=== PATIENT | female | born 1985 ===

== ENCOUNTER 2020-03-17 09:35 | Inpatient (IN) | payer OTHER ==
[2020-03-17] MEDS ORDERED: Sodium Chloride 0.9% 10 ML SDV IV PRN (12:24)
[2020-03-17] MEDS ORDERED: Water For Irrigation,Sterile 1,000 ML Container IRR PRN (12:24)
[2020-03-17] MEDS ORDERED: Nalbuphine 10 MG/1 ML Vial IVPUSH PRN (12:24)
[2020-03-17] MEDS ORDERED: Carboprost Tromethamine 250 MCG/1 ML Amp IM PRN (12:24)
[2020-03-17] MEDS ORDERED: Sodium Chloride 0.9% 10 ML Syringe FLUSH PRN (12:24)
[2020-03-17] MEDS ORDERED: Misoprostol 200 MCG Tab PO PRN (12:24)
[2020-03-17] MEDS ORDERED: Butorphanol 1 MG/ML SDV IVPUSH PRN (12:24)
[2020-03-17] MEDS ORDERED: Tranexamic Acid 1,000 MG in Sodium Chloride 0.9% 100 ML IV PRN (12:24)
[2020-03-17] MEDS ORDERED: Lidocaine 1% 50 ML MDV INJECT PRN (12:24)
[2020-03-17] MEDS ORDERED: Methylergonovine 0.2 MG/1 ML Amp IM PRN (12:24)
[2020-03-17] MEDS ORDERED: Sodium Chloride 0.9% 2.5 ML Syringe FLUSH PRN (12:24)
[2020-03-17] MEDS ORDERED: Oxytocin/0.9 % Sodium Chloride 30 UNIT/500 ML BAG IV SCH ×2 (12:30→23:45)
--- NOTE | 2020-03-17 16:36 | PCM.LDHP ---
L&D History of Present Illness - General Date of Service: 03/17/20 Admit Problem/Dx: Patient Status Order with Admit Dx/Problem 03/17/20 09:30 Patient Status [ADT] Routine Admission Diagnosis/Problem Admission Diagnosis/Problem Source of Information: Patient History Limitations: Reports: No Limitations - History of Present Illness Improves with: Reports: None Worsens with: Reports: None Associated Symptoms: Reports: N - Related Data Allergies/Adverse Reactions: Allergies Allergy/AdvReac Type Severity Reaction Status Date / Time No Known Allergies Allergy Verified 03/17/20 09:55 Home Medications: Home Meds Ascorbate Calcium [Vitamin C] 500 mg PO DAILY 02/24/20 [History] Folic Acid 1 mg PO DAILY 02/24/20 [History] Vits #93/Iron Fum/FA [ Formula Tablet] 1 each PO DAILY 02/24/20 [History] Past Medical History - Past Health History Medical/Surgical History: Denies 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: Social & Family History - Family History Endocrine/Metabolic: Reports: Diabetes, type II, Other (See Below) Other Endocrine/Metabolic Family History: Mother - Tobacco Use Tobacco Use Status *Q: Former Tobacco User Years of Tobacco use: 3 Packs/Tins Daily: 0.2 Used Tobacco, but Quit: Yes Month/Year Tobacco Last Used: 2017 Second Hand Smoke Exposure: No - Caffeine Use Caffeine Use: Reports: Coffee - Recreational Drug Use Recreational Drug Use: No H&P Review of Systems - Review of Systems: Review Of Systems: See Below General: Reports: No Symptoms HEENT: Reports: No Symptoms Pulmonary: Reports: No Symptoms Cardiovascular: Reports: No Symptoms Gastrointestinal: Reports: No Symptoms Genitourinary: Reports: No Symptoms Musculoskeletal: Reports: No Symptoms Skin: Reports: No Symptoms Psychiatric: Reports: No Symptoms Neurological: Reports: No Symptoms Hematologic/Lymphatic: Reports: No Symptoms Immunologic: Reports: No Symptoms L&D Exam - Exam Exam: See Below - Vital Signs Weight: 96.162 kg - OB Specific Contraction Intensity: Mild to Moderate Movement: Active Heart Tones: Present Presentation: Vertex - Guerra Score Guerra Score Cervix Position: Midposition Guerra Score Consistency: Soft Guerra Score Effacement: >80% Guerra Score Dilation: > 5 cm Guerra Score Infant's Station: -3 Guerra Score Total: 9 - Exam General: Alert, Oriented HEENT: PERRLA, Conjunctiva Clear, EACs Clear, EOMI, Hearing Intact, Mucosa Moist & Parral, Nares Patent, Normal Nasal Septum, Posterior Pharynx Clear, TMs Clear Neck: Supple, Trachea Midline Lungs: Clear to Auscultation, Normal Respiratory Effort Cardiovascular: Regular Rate, Regular Rhythm GI/Abdominal Exam: Normal Bowel Sounds, Soft, Non-Tender, No Organomegaly, No Distention, No Abnormal Bruit, No Mass, Pelvis Stable Rectal Exam: Normal Exam, Normal Rectal Tone Genitourinary: Normal external exam, Normal bimanual exam, Normal speculum exam Back Exam: Normal Inspection, Full Range of Motion Extremities: Normal Inspection, Normal Range of Motion, Non-Tender, No Pedal Edema, Normal Capillary Refill Skin: Warm, Dry, Intact Neurological: Cranial Nerves Intact, Reflexes Equal Bilateral Psychiatric: Alert, Normal Affect, Normal Mood - Patient Data Lab Results Last 24 hrs: Laboratory Results - last 24 hr 03/17/20 03/17/20 03/17/20 Range/Units 12:40 12:40 12:40 WBC 9.17 (4.0-11.0) K/uL RBC 4.15 L (4.30-5.90) M/uL Hgb 13.0 (12.0-16.0) g/dL Hct 39.1 (36.0-46.0) % MCV 94.2 (80.0-98.0) fL MCH 31.3 (27.0-32.0) pg MCHC 33.2 (31.0-37.0) g/dL RDW Std Deviation 46.8 (28.0-62.0) fl RDW Coeff of Katharina 14 (11.0-15.0) % Plt Count 294 (150-400) K/uL MPV 9.90 (7.40-12.00) fL Nucleated RBC % 0.0 /100WBC Nucleated RBCs # 0 K/uL SARS-CoV-2 RNA (JASON) NEGATIVE (NEGATIVE) Blood Type O POSITIVE Antibody Screen NEGATIVE Result Diagrams: 03/17/20 12:40 Problem List Initiated/Reviewed/Updated: Yes Orders Last 24hrs: Active Orders 24 hr Category Date Time Status Patient Status [ADT] Routine ADT 03/17/20 09:30 Active Blood Glucose Check, Bedside [RC] ASDIRECTED Care 03/17/20 15:13 Active Heart Tones [RC] CONTINUOUS Care 03/17/20 12:24 Active Non Stress Test [RC] PER UNIT ROUTINE Care 03/17/20 09:55 Active May Shower [RC] ASDIRECTED Care 03/17/20 12:24 Active Notify Provider [RC] PRN Care 03/17/20 12:24 Active Up ad Елена [RC] ASDIRECTED Care 03/17/20 09:55 Active Up ad Елена [RC] ASDIRECTED Care 03/17/20 12:24 Active Vaginal Exam [RC] Click to Edit Care 03/17/20 09:55 Active Vaginal Exam [RC] PRN Care 03/17/20 12:24 Active Vital Signs [RC] PER UNIT ROUTINE Care 03/17/20 09:55 Active RPR (SYPHILIS SERO) W/ RFLX [REF] Routine Lab 03/17/20 12:40 Received Butorphanol [Stadol] Med 03/17/20 12:24 Active 1 mg IVPUSH Q1H PRN Carboprost Tromethamine [Hemabate DS] Med 03/17/20 12:24 Active 250 mcg IM ASDIRECTED PRN Lactated Ringers [Ringers, Lactated] 1,000 ml Med 03/17/20 12:30 Active IV ASDIRECTED Lidocaine 1% [Xylocaine 1%] Med 03/17/20 12:24 Active 50 ml INJECT ONETIME PRN Methylergonovine [Methergine] Med 03/17/20 12:24 Active 0.2 mg IM ASDIRECTED PRN Oxytocin/0.9 % Sodium Chloride [Oxytocin 30 Unit/500 ML Med 03/17/20 12:30 Active -NS] 30 unit in 500 ml IV TITRATE Sodium Chloride 0.9% [Normal Saline] Med 03/17/20 12:24 Active 10 ml IV ASDIRECTED PRN Sodium Chloride 0.9% [Saline Flush] Med 03/17/20 12:24 Active 10 ml FLUSH ASDIRECTED PRN Sodium Chloride 0.9% [Saline Flush] Med 03/17/20 12:24 Active 2.5 ml FLUSH ASDIRECTED PRN Tranexamic Acid [Cyklokapron] 1,000 mg Med 03/17/20 12:24 Active Sodium Chloride 0.9% [Normal Saline] 100 ml IV ONETIME Water For Irrigation,Sterile [Sterile Water for Med 03/17/20 12:24 Active Irrigation] 1,000 ml IRR ASDIRECTED PRN miSOPROStoL [Cytotec] Med 03/17/20 12:24 Active 200 mcg PO ONETIME PRN Scalp Electrode [WOMSER] Per Unit Routine Oth 03/17/20 12:24 Ordered Peripheral IV Insertion Adult [OM.PC] Routine Oth 03/17/20 12:24 Ordered Resuscitation Status Routine Resus Stat 03/17/20 09:55 Ordered Medication Orders Butorphanol Tartrate (Stadol) 1 mg IVPUSH Q1H PRN PRN Reason: Pain Carboprost Tromethamine (Hemabate Ds) 250 mcg IM ASDIRECTED PRN PRN Reason: Post Hemorrhage Lactated Ringer's (Ringers, Lactated) 1,000 mls @ 150 mls/hr IV ASDIRECTED NANCI Oxytocin/Sodium Chloride (Oxytocin 30 Unit/500 Ml-Ns) 30 unit in 500 mls @ 500 mls/hr IV TITRATE NANCI Tranexamic Acid 1,000 mg/ (Sodium Chloride) 110 mls @ 660 mls/hr IV ONETIME PRN PRN Reason: Bleeding Lidocaine HCl (Xylocaine 1%) 50 ml INJECT ONETIME PRN PRN Reason: Laceration repair Methylergonovine Maleate (Methergine) 0.2 mg IM ASDIRECTED PRN PRN Reason: Post Hemorrhage Misoprostol (Cytotec) 200 mcg PO ONETIME PRN PRN Reason: Post Hemorrhage Sodium Chloride (Saline Flush) 10 ml FLUSH ASDIRECTED PRN PRN Reason: Keep Vein Open Sodium Chloride (Saline Flush) 2.5 ml FLUSH ASDIRECTED PRN PRN Reason: Keep Vein Open Sodium Chloride (Normal Saline) 10 ml IV ASDIRECTED PRN PRN Reason: IV Use Sterile Water (Sterile Water For Irrigation) 1,000 ml IRR ASDIRECTED PRN PRN Reason: delivery Assessment/Plan Comment:: Early active labor.37+4 SROM clear filud
[2020-03-17] MEDS: Lactated Ringers 1,000 ML IV SCH ×2 (20:59→21:45)
[2020-03-17] MEDS ORDERED: fentaNYL 100 MCG/2 ML SDV ONE (21:16)
[2020-03-17] MEDS ORDERED: Ropivacaine HCl/PF 100 ML ONE (21:16)
--- NOTE | 2020-03-17 21:38 | PCM.PREANE ---
Preanesthetic Assessment - Anesthesia/Transfusion/Family Hx Anesthesia History: No Prior Anesthesia Family History of Anesthesia Reaction: No Transfusion History: No Prior Transfusion(s) - Physical Assessment NPO Status Date: 03/17/20 NPO Status Time: 12:00 Height: 1.63 m Weight: 96.162 kg ASA Class: 2 - Lab Values: Laboratory Last Values WBC 9.17 K/uL (4.0-11.0) 03/17/20 12:40 RBC 4.15 M/uL (4.30-5.90) L 03/17/20 12:40 Hgb 13.0 g/dL (12.0-16.0) 03/17/20 12:40 Hct 39.1 % (36.0-46.0) 03/17/20 12:40 MCV 94.2 fL (80.0-98.0) 03/17/20 12:40 MCH 31.3 pg (27.0-32.0) 03/17/20 12:40 MCHC 33.2 g/dL (31.0-37.0) 03/17/20 12:40 RDW Std Deviation 46.8 fl (28.0-62.0) 03/17/20 12:40 RDW Coeff of Katharina 14 % (11.0-15.0) 03/17/20 12:40 Plt Count 294 K/uL (150-400) 03/17/20 12:40 MPV 9.90 fL (7.40-12.00) 03/17/20 12:40 Nucleated RBC % 0.0 /100WBC 03/17/20 12:40 Nucleated RBCs # 0 K/uL 03/17/20 12:40 SARS-CoV-2 RNA (JASON) NEGATIVE (NEGATIVE) 03/17/20 12:40 Blood Type O POSITIVE 03/17/20 12:40 Antibody Screen NEGATIVE 03/17/20 12:40 - Allergies Allergies/Adverse Reactions: Allergies Allergy/AdvReac Type Severity Reaction Status Date / Time No Known Allergies Allergy Verified 03/17/20 09:55 - Acknowledgements Anesthesia Type Planned: Epidural Pt an Appropriate Candidate for the Planned Anesthesia: Yes Alternatives and Risks of Anesthesia Discussed w Pt/Guardian: Yes Pt/Guardian Understands and Agrees with Anesthesia Plan: Yes PreAnesthesia Questionnaire - Past Health History Medical/Surgical History: Denies 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 Tobacco Use Status *Q: Former Tobacco User Tobacco Use Within Last Twelve Months: No Second Hand Smoke Exposure: No Recreational Drug Use History: No - HOME MEDS Home Medications: Home Meds Ascorbate Calcium [Vitamin C] 500 mg PO DAILY 02/24/20 [History] Folic Acid 1 mg PO DAILY 02/24/20 [History] Vits #93/Iron Fum/FA [ Formula Tablet] 1 each PO DAILY 02/24/20 [History] - CURRENT (IN HOUSE) MEDS Current Meds: Current Medications Butorphanol Tartrate (Stadol) 1 mg IVPUSH Q1H PRN PRN Reason: Pain Carboprost Tromethamine (Hemabate Ds) 250 mcg IM ASDIRECTED PRN PRN Reason: Post Hemorrhage Lactated Ringer's (Ringers, Lactated) 1,000 mls @ 150 mls/hr IV ASDIRECTED NANCI Last Admin: 03/17/20 20:59 Dose: 999 mls/hr Documented by: Oxytocin/Sodium Chloride (Oxytocin 30 Unit/500 Ml-Ns) 30 unit in 500 mls @ 500 mls/hr IV TITRATE [facility] Tranexamic Acid 1,000 mg/ (Sodium Chloride) 110 mls @ 660 mls/hr IV ONETIME PRN PRN Reason: Bleeding Lidocaine HCl (Xylocaine 1%) 50 ml INJECT ONETIME PRN PRN Reason: Laceration repair Methylergonovine Maleate (Methergine) 0.2 mg IM ASDIRECTED PRN PRN Reason: Post Hemorrhage Misoprostol (Cytotec) 200 mcg PO ONETIME PRN PRN Reason: Post Hemorrhage Sodium Chloride (Saline Flush) 10 ml FLUSH ASDIRECTED PRN PRN Reason: Keep Vein Open Sodium Chloride (Saline Flush) 2.5 ml FLUSH ASDIRECTED PRN PRN Reason: Keep Vein Open Sodium Chloride (Normal Saline) 10 ml IV ASDIRECTED PRN PRN Reason: IV Use Sterile Water (Sterile Water For Irrigation) 1,000 ml IRR ASDIRECTED PRN PRN Reason: delivery Discontinued Medications Fentanyl (Sublimaze) Confirm Administered Dose 100 mcg .ROUTE .STK-MED ONE Stop: 03/17/20 21:17 Ropivacaine (Naropin 0.2%) Confirm Administered Dose 100 mls @ as directed .ROUTE .STK-MED ONE Stop: 03/17/20 21:17
--- NOTE | 2020-03-17 21:41 | PCM.PRNOTE ---
- Free Text/Narrative Note: Anes Note Patient requests epidural for L&D. Sitting position level L3-L4 midline approach. Sterile technique. Chloraprep scrub to lumbar area. Sterile fenestrated drape applied. Epidural space easily achieved single attempt with ease using RAJAT technique. RAJAT at 3 cm. Cath threaded 5 cm with ease. Cath secured at skin using sterile clear adhesive dressing. Test 2124 3 cc 1.5% lido with epi negative. 2127 Load 10 cc 0.2% ropivicaine with 1 mcg cc fentanyl in slow divided doses. 2133 Pump started with 90 cc same solution. Rate is 8 cc hr with 6 cc q 20 min prn bolus. 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
[2020-03-17] MEDS ORDERED: Terbutaline 1 MG/ML SDV SUBCUT PRN (23:56)
[2020-03-18] MEDS: Lactated Ringers 1,000 ML IV SCH ×2 (01:05→03:07)
[2020-03-18] MEDS ORDERED: Acetaminophen 500 MG Tab PO ONE (01:46)
[2020-03-18] MEDS ORDERED: Acetaminophen 500 MG Tab ONE (01:55)
[2020-03-18] MEDS ORDERED: oxyCODONE 5 MG Tab PO PRN (05:30)
[2020-03-18] MEDS ORDERED: Acetaminophen 500 MG Tab PO PRN (05:30)
[2020-03-18] MEDS ORDERED: Benzocaine/Menthol 20%-0.5% Spray 78 GM Cannister TOP PRN (05:30)
[2020-03-18] MEDS ORDERED: Lanolin 100% Cream 7 GM Tube TOP PRN (05:30)
[2020-03-18] MEDS ORDERED: Ibuprofen 400 MG Tab PO PRN (05:30)
[2020-03-18] MEDS ORDERED: Bisacodyl 10 MG Supp RECTAL PRN (05:30)
[2020-03-18] MEDS ORDERED: Witch Hazel Medicated Pads 40/Jar TOP PRN (05:30)
[2020-03-18] MEDS: Docusate Sodium 100 MG Cap PO PRN (08:04)
[2020-03-18] MEDS: Ibuprofen 800 MG Tab PO PRN ×2 (08:05→19:57)
--- NOTE | 2020-03-18 08:53 | OR ---
SURGEON: Alejandro Calderon MD DATE OF PROCEDURE: 03/18/2020 INDICATION: Ms. Antunez is a 35-year-old patient. She is para 0-0-0-0. She is followed in our clinic jointly by myself and our nurse mountain guide. She is gestational diabetic. She is treated with diet and metformin. She is admitted to Labor and Delivery with spontaneous labor. PROCEDURE IN DETAIL: At the time of admission, she is 3 to 4 cm, heart rate was normal and the patient is observed for 1 hour. She progressed to 5 cm. She is formally admitted and started laboring on her own. At 5 cm, she had an artificial rupture of the membrane by me. The patient continued to contract spontaneously on her own. She had epidural anesthesia for labor analgesia and she reached 9 cm. She required Pitocin augmentation to augment her contraction farther and then she became complete, complete. She pushed for an hour, she brought the baby to +1, almost +2, and she was exhausted and after consulting with the parent, vacuum extraction was offered to them and I explained to them in detail, and the patient and her consented for that, and with the pediatricians present vacuum extraction using the Kiwi vacuum was used. The fetus was delivered. There were 2 nuchal cords noticed and the heart rate was good and it was moving; however, it needed assistance for breathing. score and the weight are not available at the time of the dictation. Midline episiotomy was needed, and the placenta delivered spontaneous, complete, and intact, and then after that repair of the episiotomy done with 3-0 Vicryl. Estimated blood loss was 350 to 400 mL. There was no heart rate complication. heart rate was category 1 through the entire process of labor. There was no complication in the labor and delivery process of this patient. DEEDEE / DAYO /[id number]
--- NOTE | 2020-03-19 06:16 | PCM48HPAN ---
Post Anesthesia Note - EVALUATION WITHIN 48HRS OF ANESTHETIC Vital Signs in Normal Range: Yes Patient Participated in Evaluation: Yes Respiratory Function Stable: Yes Airway Patent: Yes Cardiovascular Function Stable: Yes Hydration Status Stable: Yes Pain Control Satisfactory: Yes Nausea and Vomiting Control Satisfactory: Yes Mental Status Recovered: Yes Vital Signs: Last Vital Signs Temp 35.7 C L 03/19/20 04:41 Pulse 84 03/19/20 04:41 Resp 16 03/19/20 04:41 BP 121/55 L 03/19/20 04:41 Pulse Ox 96 03/19/20 04:41 - COMMENTS/OBSERVATIONS Free Text/Narrative:: The patient has some mild back pain. No other complaints. There were no apparent anesthetic complications at this time. Discharge per primary service.
--- NOTE | 2020-03-19 09:34 | PCM.DCSUM1 ---
Discharge Summary - Hospital Course Free Text/Narrative:: 35yo G3 now P1111 s/p VAVD over a midline episiotomy at 37w6d GA due to maternal exhaustion. c/b AMA, GDMA1 and h/o delivery at 20w GA ag demise. stay has been unremarkable. HPI Initial Comments: 35yo who presented at 37w6d GA in labor. O positive, RI, GBS negative. c/b AMA, GDMA1 and h/o delivery at 20w GA and demise. Brief History: 35yo who presented at 37w6d GA in labor. O positive, RI, GBS negative. c/b AMA, GDMA1 and h/o delivery at 20w GA and demise. Patient progressed to 9cm on her own and required pitocin augmentation to reach full dilation. Pushed for 1 hr, and due to maternal exhaustion, was offered Vaccuum assisted which she was agreeable to. S/P VAVD over midline episiotomy. EBL 350-400ml. stay unremarkable Diagnosis: Stroke: No - Discharge Data Discharge Date: 03/19/20 Discharge Disposition: Home, Self-Care 01 Condition: Good - Referral to Home Health Primary Care Physician: PCP None - Patient Summary/Data Operative Procedure(s) Performed: Vacuum Assisted Vaginal Delivery Complications: None Hospital Course: stay has been unremarkable. - Patient Instructions Diet: Regular Diet as Tolerated - Discharge Plan *PRESCRIPTION DRUG MONITORING PROGRAM REVIEWED*: Not Applicable *COPY OF PRESCRIPTION DRUG MONITORING REPORT IN PATIENT CHRISTINA: Not Applicable Home Medications: Home Meds Ascorbate Calcium [Vitamin C] 500 mg PO DAILY 02/24/20 [History] Folic Acid 1 mg PO DAILY 02/24/20 [History] Vits #93/Iron Fum/FA [ Formula Tablet] 1 each PO DAILY 02/24/20 [History] Referrals: [facility] [Outside] Alejandro Calderon MD [Physician] - 04/29/20 10:45 am - Discharge Summary/Plan Comment DC Time >30 min.: Yes - General Info Date of Service: 03/19/20 Admission Dx/Problem (Free Text: Patient Status Order with Admit Dx/Problem 03/17/20 09:30 Patient Status [ADT] Routine Admission Diagnosis/Problem Admission Diagnosis/Problem Subjective Update: Patient doing well today. Pain well controlled. No fever. Had a few small clots yesterday and none overnight. Bleeding is otherwise light. Urinating without significant difficulty. Eating without nausea or vomiting Ambulating without dizziness Functional Status: Reports: Pain Controlled - Review of Systems General: Reports: No Symptoms HEENT: Reports: No Symptoms Pulmonary: Reports: No Symptoms Cardiovascular: Reports: No Symptoms Gastrointestinal: Reports: No Symptoms Genitourinary: Reports: No Symptoms Musculoskeletal: Reports: No Symptoms Skin: Reports: No Symptoms - Patient Data Vitals - Most Recent: Last Vital Signs Temp 97.5 F 03/19/20 08:11 Pulse 68 03/19/20 08:11 Resp 15 03/19/20 08:11 BP 125/64 03/19/20 08:11 Pulse Ox 97 03/19/20 08:11 Weight - Most Recent: 96.162 kg Lab Results - Last 24 hrs: Laboratory Results - last 24 hr 03/17/20 03/19/20 Range/Units 12:40 05:20 Hgb 11.8 L (12.0-16.0) g/dL Hct 35.6 L (36.0-46.0) % RPR Non-Reac (Non-Reac) Med Orders - Current: Current Medications Acetaminophen (Tylenol Extra Strength) 500 mg PO Q4H PRN PRN Reason: Pain Acetaminophen (Tylenol Extra Strength) 1,000 mg PO Q4H PRN PRN Reason: Pain Benzocaine/Menthol (Dermoplast Pain Relief 20%-0.5% [place]) 78 gm TOP ASDIRECTED PRN PRN Reason: Perineal Comfort Measure Last Admin: 03/18/20 08:03 Dose: 1 canister Documented by: Bisacodyl (Dulcolax) 10 mg RECTAL ONETIME PRN PRN Reason: Constipation Docusate Sodium (Colace) 100 mg PO BID PRN PRN Reason: Constipation Last Admin: 03/18/20 08:04 Dose: 100 mg Documented by: Emollient Ointment (Lansinoh Hpa) 0 gm TOP ASDIRECTED PRN PRN Reason: Sore Nipples Ibuprofen (Motrin) 400 mg PO Q4H PRN PRN Reason: Pain Ibuprofen (Motrin) 800 mg PO Q6H PRN PRN Reason: Pain Last Admin: 03/18/20 19:57 Dose: 800 mg Documented by: Oxycodone HCl (Oxycodone) 5 mg PO Q2H PRN PRN Reason: Pain Sodium Chloride (Saline Flush) 10 ml FLUSH ASDIRECTED PRN PRN Reason: Keep Vein Open Sodium Chloride (Saline Flush) 2.5 ml FLUSH ASDIRECTED PRN PRN Reason: Keep Vein Open Sodium Chloride (Normal Saline) 10 ml IV ASDIRECTED PRN PRN Reason: IV Use Witch Tara (Tucks) 1 pad TOP ASDIRECTED PRN PRN Reason: comfort care Last Admin: 03/18/20 08:03 Dose: 1 tub Documented by: Discontinued Medications Acetaminophen (Tylenol Extra Strength) 1,000 mg PO ONETIME ONE Stop: 03/18/20 01:47 Last Admin: 03/18/20 01:57 Dose: 1,000 mg Documented by: Acetaminophen (Tylenol Extra Strength) Confirm Administered Dose 1,000 mg .ROUTE .STK-MED ONE Stop: 03/18/20 01:56 Last Admin: 03/18/20 22:03 Dose: Not Given Documented by: Butorphanol Tartrate (Stadol) 1 mg IVPUSH Q1H PRN PRN Reason: Pain Carboprost Tromethamine (Hemabate Ds) 250 mcg IM ASDIRECTED PRN PRN Reason: Post Hemorrhage Fentanyl (Sublimaze) Confirm Administered Dose 100 mcg .ROUTE .STK-MED ONE Stop: 03/17/20 21:17 Last Admin: 03/18/20 22:04 Dose: Not Given Documented by: Lactated Ringer's (Ringers, Lactated) 1,000 mls @ 150 mls/hr IV ASDIRECTED [facility] Last Admin: 03/18/20 03:07 Dose: 150 mls/hr Documented by: Oxytocin/Sodium Chloride (Oxytocin 30 Unit/500 Ml-Ns) 30 unit in 500 mls @ 500 mls/hr IV TITRATE [facility] Last Infusion: 03/18/20 05:43 Dose: 500 mls/hr Documented by: Tranexamic Acid 1,000 mg/ (Sodium Chloride) 110 mls @ 660 mls/hr IV ONETIME PRN PRN Reason: Bleeding Ropivacaine (Naropin 0.2%) Confirm Administered Dose 100 mls @ as directed .ROUTE .STK-MED ONE Stop: 03/17/20 21:17 Last Admin: 03/18/20 22:04 Dose: Not Given Documented by: Oxytocin/Sodium Chloride (Oxytocin 30 Unit/500 Ml-Ns) 30 unit in 500 mls @ 2 mls/hr IV TITRATE NANCI; Protocol Last Titration: 03/18/20 05:22 Dose: 0 munits/min, 0 mls/hr Documented by: Lidocaine HCl (Xylocaine 1%) 50 ml INJECT ONETIME PRN PRN Reason: Laceration repair Methylergonovine Maleate (Methergine) 0.2 mg IM ASDIRECTED PRN PRN Reason: Post Hemorrhage Misoprostol (Cytotec) 200 mcg PO ONETIME PRN PRN Reason: Post Hemorrhage Sterile Water (Sterile Water For Irrigation) 1,000 ml IRR ASDIRECTED PRN PRN Reason: delivery Terbutaline Sulfate (Brethine) 0.25 mg SUBCUT ASDIRECTED PRN PRN Reason: Tacysystole - Exam General: Reports: Alert, Oriented Neck: Reports: Supple Lungs: Reports: Normal Respiratory Effort Cardiovascular: Reports: Regular Rate GI/Abdominal Exam: Soft, Non-Tender, Other (Fundus palpated below the umbilicus) Extremities: Normal Inspection (Fundus palpated below the umbilicus) Skin: Reports: Intact Psy/Mental Status: Reports: Alert, Normal Affect, Normal Mood
[2020-03-19] MEDS: Acetaminophen 500 MG Tab PO PRN ×2 (09:51→18:18)
[2020-03-19] MEDS: Docusate Sodium 100 MG Cap PO PRN (20:53)
[2020-03-19] MEDS: Ibuprofen 800 MG Tab PO PRN (20:53)
[2020-03-20] MEDS: Ibuprofen 800 MG Tab PO PRN (05:37)
--- NOTE | 2020-03-20 09:01 | PCM.DCSUM1 ---
Discharge Summary - Hospital Course Free Text/Narrative:: Marlene is a 35 yo 111 PPD2 S/P OVD to term NBM. O pos, RI, GBS neg. Pertinent history includes: A1GDM, AMA, hx of delivery re: cervical incompetence, obesity. Patient has no complaints or concerns at this time except vaginal swelling/discomfort (2nd degree perineal laceration, repaired). Patient is breast and bottlefeeding well, resting comfortably in bed with in arms. Patient reports she is eating, voiding, ambulating independent ly and without difficulty. Patient denies any problems or concerns at this time except mild-moderate intermittent uterine cramping relieved with Tylenol and Ibuprofen. Patient reports moderate vaginal bleeding with no clots. Patient verbalizes her readiness to be discharged home today. Brief History: 35yo who presented at 37w6d GA in labor. O positive, RI, GBS negative. c/b AMA, GDMA1 and h/o delivery at 20w GA and demise. Patient progressed to 9cm on her own and required pitocin augmentation to reach full dilation. Pushed for 1 hr, and due to maternal exhaustion, was offered Vaccuum assisted which she was agreeable to. S/P VAVD over midline episiotomy. EBL 350-400ml. stay unremarkable Diagnosis: Stroke: No - Discharge Data Discharge Date: 03/20/20 Discharge Disposition: Home, Self-Care 01 Condition: Good - Referral to Home Health Primary Care Physician: PCP None - Discharge Diagnosis/Problem(s) (1) Vacuum-assisted vaginal delivery SNOMED Code(s): [id number] ICD Code: Z37.9 - OUTCOME OF DELIVERY, UNSPECIFIED Status: Acute Current Visit: Yes - Patient Summary/Data Operative Procedure(s) Performed: Vacuum Assisted Vaginal Delivery - Patient Instructions Diet: Usual Diet as Tolerated, Regular Diet as Tolerated, Drink 8-10+ Glasses/Day Activity: As Tolerated, No Strenuous Activities, Rest and Relax Today Driving: May Drive Today Showering/Bathing: May Shower Showering/Bathing, Other: Sitz baths for comfort Notify Provider of: Fever, Increased Pain, Swelling and Redness, Drainage, Nausea and/or Vomiting - Discharge Plan *PRESCRIPTION DRUG MONITORING PROGRAM REVIEWED*: No *COPY OF PRESCRIPTION DRUG MONITORING REPORT IN PATIENT CHRISTINA: No Prescriptions/Med Rec: Ibuprofen [Motrin] 800 mg PO Q8H PRN #90 tablet PRN Reason: Pain Home Medications: Home Meds Vits #93/Iron Fum/FA [ Formula Tablet] 1 each PO DAILY 02/24/20 [History] Ibuprofen [Motrin] 800 mg PO Q8H PRN #90 tablet 03/20/20 [Rx] Referrals: [facility] [Outside] Alejandro Calderon MD [Physician] - 04/29/20 10:45 am - Discharge Summary/Plan Comment DC Time >30 min.: Yes Discharge Summary/Plan Comment: Hemodynamically stable, afebrile. Independent with ADLs, pain well controlled. Ibuprofen prescription sent to pharmacy. Warning S/Ss, when to call for help discussed, no questions or concerns. F/U in office in 6 weeks for visit or sooner if problem arise. - General Info Date of Service: 03/20/20 Admission Dx/Problem (Free Text: Patient Status Order with Admit Dx/Problem 03/17/20 09:30 Patient Status [ADT] Routine Admission Diagnosis/Problem Admission Diagnosis/Problem Subjective Update: Patient doing well today. Pain well controlled. No fever. Had a few small clots yesterday and none overnight. Bleeding is otherwise light. Urinating without significant difficulty. Eating without nausea or vomiting Ambulating without dizziness Functional Status: Reports: Pain Controlled - Review of Systems General: Reports: No Symptoms HEENT: Reports: No Symptoms Pulmonary: Reports: No Symptoms Cardiovascular: Reports: No Symptoms Gastrointestinal: Reports: No Symptoms Genitourinary: Reports: No Symptoms Musculoskeletal: Reports: No Symptoms Skin: Reports: No Symptoms Neurological: Reports: No Symptoms Psychiatric: Reports: No Symptoms - Patient Data Vitals - Most Recent: Last Vital Signs Temp 98.4 F 03/20/20 07:49 Pulse 69 03/20/20 07:49 Resp 18 03/20/20 07:49 BP 131/64 03/20/20 07:49 Pulse Ox 97 03/20/20 07:49 Weight - Most Recent: 212 lb Med Orders - Current: Current Medications Acetaminophen (Tylenol Extra Strength) 500 mg PO Q4H PRN PRN Reason: Pain Acetaminophen (Tylenol Extra Strength) 1,000 mg PO Q4H PRN PRN Reason: Pain Last Admin: 03/19/20 18:18 Dose: 1,000 mg Documented by: Benzocaine/Menthol (Dermoplast Pain Relief 20%-0.5% [place]) 78 gm TOP ASDIRECTED PRN PRN Reason: Perineal Comfort Measure Last Admin: 03/18/20 08:03 Dose: 1 canister Documented by: Bisacodyl (Dulcolax) 10 mg RECTAL ONETIME PRN PRN Reason: Constipation Docusate Sodium (Colace) 100 mg PO BID PRN PRN Reason: Constipation Last Admin: 03/19/20 20:53 Dose: 100 mg Documented by: Emollient Ointment (Lansinoh Hpa) 0 gm TOP ASDIRECTED PRN PRN Reason: Sore Nipples Ibuprofen (Motrin) 400 mg PO Q4H PRN PRN Reason: Pain Ibuprofen (Motrin) 800 mg PO Q6H PRN PRN Reason: Pain Last Admin: 03/20/20 05:37 Dose: 800 mg Documented by: Oxycodone HCl (Oxycodone) 5 mg PO Q2H PRN PRN Reason: Pain Sodium Chloride (Saline Flush) 10 ml FLUSH ASDIRECTED PRN PRN Reason: Keep Vein Open Sodium Chloride (Saline Flush) 2.5 ml FLUSH ASDIRECTED PRN PRN Reason: Keep Vein Open Sodium Chloride (Normal Saline) 10 ml IV ASDIRECTED PRN PRN Reason: IV Use Witch Tara (Tucks) 1 pad TOP ASDIRECTED PRN PRN Reason: comfort care Last Admin: 03/18/20 08:03 Dose: 1 tub Documented by: Discontinued Medications Acetaminophen (Tylenol Extra Strength) 1,000 mg PO ONETIME ONE Stop: 03/18/20 01:47 Last Admin: 03/18/20 01:57 Dose: 1,000 mg Documented by: Acetaminophen (Tylenol Extra Strength) Confirm Administered Dose 1,000 mg .ROUTE .STK-MED ONE Stop: 03/18/20 01:56 Last Admin: 03/18/20 22:03 Dose: Not Given Documented by: Butorphanol Tartrate (Stadol) 1 mg IVPUSH Q1H PRN PRN Reason: Pain Carboprost Tromethamine (Hemabate Ds) 250 mcg IM ASDIRECTED PRN PRN Reason: Post Hemorrhage Fentanyl (Sublimaze) Confirm Administered Dose 100 mcg .ROUTE .STK-MED ONE Stop: 03/17/20 21:17 Last Admin: 03/18/20 22:04 Dose: Not Given Documented by: Lactated Ringer's (Ringers, Lactated) 1,000 mls @ 150 mls/hr IV ASDIRECTED NANCI Last Admin: 03/18/20 03:07 Dose: 150 mls/hr Documented by: Oxytocin/Sodium Chloride (Oxytocin 30 Unit/500 Ml-Ns) 30 unit in 500 mls @ 500 mls/hr IV TITRATE NANCI Last Infusion: 03/18/20 05:43 Dose: 500 mls/hr Documented by: Tranexamic Acid 1,000 mg/ (Sodium Chloride) 110 mls @ 660 mls/hr IV ONETIME PRN PRN Reason: Bleeding Ropivacaine (Naropin 0.2%) Confirm Administered Dose 100 mls @ as directed .ROUTE .[email or web address] ONE Stop: 03/17/20 21:17 Last Admin: 03/18/20 22:04 Dose: Not Given Documented by: Oxytocin/Sodium Chloride (Oxytocin 30 Unit/500 Ml-Ns) 30 unit in 500 mls @ 2 mls/hr IV TITRATE NANCI; Protocol Last Titration: 03/18/20 05:22 Dose: 0 munits/min, 0 mls/hr Documented by: Lidocaine HCl (Xylocaine 1%) 50 ml INJECT ONETIME PRN PRN Reason: Laceration repair Methylergonovine Maleate (Methergine) 0.2 mg IM ASDIRECTED PRN PRN Reason: Post Hemorrhage Misoprostol (Cytotec) 200 mcg PO ONETIME PRN PRN Reason: Post Hemorrhage Sterile Water (Sterile Water For Irrigation) 1,000 ml IRR ASDIRECTED PRN PRN Reason: delivery Terbutaline Sulfate (Brethine) 0.25 mg SUBCUT ASDIRECTED PRN PRN Reason: Tacysystole - Exam General: Reports: Alert, Oriented, Cooperative, No Acute Distress HEENT: Reports: Pupils Equal, Pupils Reactive, Mucous Membr. Moist/[place]ck: Reports: Supple Lungs: Reports: Clear to Auscultation, Normal Respiratory Effort Cardiovascular: Reports: Regular Rate, Regular Rhythm GI/Abdominal Exam: Normal Bowel Sounds, Soft, Non-Tender, No Organomegaly, No Distention (Female) Exam: Enlarged Uterus ( uterus, firm U+1) Rectal (Female) Exam: Normal Exam, Normal Rectal Tone Back Exam: Reports: Normal Inspection, Full Range of Motion Extremities: Normal Inspection, Normal Range of Motion, Non-Tender, No Pedal Edema, Normal Capillary Refill Skin: Reports: Warm, Dry, Intact Wound/Incisions: Reports: No Drainage (Approximated, hemostatic, edematous) Neurological: Reports: No New Focal Deficit Psy/Mental Status: Reports: Alert, Normal Affect, Normal Mood
== END 2020-03-20 18:05 | disposition home or self-care (01) | DRG 807 ==
LOC: MW.OBCHECK 09:35 → MW.OB 10:23 → MW.OBCHECK 12:24 → OBSVTOIN 03-18 05:19 → MW.OB 03-18 10:06
PROVIDERS: ADMIT Obstetrics & Gynecology; ATTEND Obstetrics & Gynecology
PROC: 10D07Z6 Extraction of Products of Conception, Vacuum, Via Natural or Artificial Opening (ICD-10-PCS; principal; 2020-03-18)
PROC: 10907ZC Drainage of Amniotic Fluid, Therapeutic from Products of Conception, Via Natural or Artificial Opening (ICD-10-PCS; 2020-03-18)
PROC: 0W8NXZZ Division of Female Perineum, External Approach (ICD-10-PCS; 2020-03-18)
PROC: 3E0R3BZ Introduction of Anesthetic Agent into Spinal Canal, Percutaneous Approach (ICD-10-PCS; 2020-03-18)
PROC: 00HU33Z Insertion of Infusion Device into Spinal Canal, Percutaneous Approach (ICD-10-PCS; 2020-03-18)
DX: O24.420 Gestational diabetes mellitus in childbirth, diet controlled (principal); Z37.0 Single live birth; O75.81 Maternal exhaustion complicating labor and delivery; Z3A.37 37 weeks gestation of pregnancy; O99.214 Obesity complicating childbirth; E66.9 Obesity, unspecified; Z87.891 Personal history of nicotine dependence; Z20.828 Contact with and (suspected) exposure to other viral communicable diseases
CPT/HCPCS: 01967; 36415; 51701; 51702; 59025; 59409; 85014; 85018; 85027; 86592; 86850; 86900; 86901; A9270-GY; J2590; J7120; U0002